=== PATIENT | female | born 1995 | race Caucasian/White ===

== ENCOUNTER 2021-10-12 15:21 | Emergency (ER) | payer BC ==
[~2021-10-12 15:21] MED LIST: NAPROSYN500 MG PO; NORCO 5-325 TA1 EACH PO; STOOL SOFTENER250 MG PO
[2021-10-12 16:38] LABS: RED BLOOD COUNT 4.36 M/UL (4.00-5.10); WHITE BLOOD COUNT 12.3 K/UL (4.5-11.0)
[2021-10-12 16:53] LABS: BUN/CREATININE RATIO 14 (0-10)
== END 2021-10-12 17:35 | disposition home or self-care (01) ==
LOC: ER1 15:21
PROVIDERS: Physician Assistant
DX: N93.8 Other specified abnormal uterine and vaginal bleeding (principal)
CPT/HCPCS: 80048; 84703; 85025; 99284